=== PATIENT | male | born 1970 | race Caucasian/White ===

== ENCOUNTER 2017-06-15 07:09 | Emergency (ER) | payer OTHER, SELFPAY ==
[2017-06-15 07:10] VITALS: BMI 36.5
[2017-06-15 07:39] VITALS: TEMP 97.9
[2017-06-15] MEDS ORDERED: Sodium Chloride 0.9% 500 ML IV STA (08:08)
--- NOTE | 2017-06-15 08:20 | ED PDOC ---
Arrival/HPI - General Chief Complaint: Palpitations Time Seen by Provider: 06/15/17 07:16 Historian: Patient - History of Present Illness Narrative History of Present Illness (Text): 06/15/17 08:17 Patient is a 47 yo male, denies past medical history, presents to the Emergency Department after developing palpitations, sweats, nausea and chest discomfort this AM prior to arrival. Patient states he is an [employer], HAD no pain symptoms during his shift from yesterday 3pm that lasted until 4am this morning. When he got home early this morning he states he took a dose of Augmentin "because I've been having some pain in my tooth" and Ibuprofen "because I always have low back pain after my shift". He states he had Augmentin left over from one year ago when he was living in [place]. States that after taking medication he felt sweaty, palpitations, nauseous with burning sensation to chest and odd taste in his tongue. Denies abdominal pain or diarrhea. Denies any numbness or weakness. Symptoms now improved prior to arrival. Past Medical History - Tetanus Immunization Tetanus Immunization: Unknown - Past Medical History Past Medical History: No Previous - Psychiatric Hx Substance Use: No - Past Surgical History Past Surgical History: No Previous - Anesthesia Hx Anesthesia: No - Suicidal Assessment Feels Threatened In Home Enviroment: No Family/Social History Family/Social History: denies: CAD/MS Smoking Status: Heavy Smoker > 10 Cigarettes Daily Hx Alcohol Use: Yes Frequency of alcohol use: Socially Hx Substance Use: No Allergies/Home Meds Allergies/Adverse Reactions: Allergies No Known Allergies Allergy (Verified 06/15/17 07:23) Review of Systems - Review of Systems Constitutional: absent: Fevers Respiratory: absent: SOB, Cough Cardiovascular: Chest Pain, Palpitations. absent: Calf Pain, FONSECA, Orthopnea Gastrointestinal: Nausea. absent: Abdominal Pain, Diarrhea, Vomiting Genitourinary Male: absent: Dysuria, Frequency Musculoskeletal: absent: Back Pain Skin: absent: Rash Neurological: absent: Headache, Dizziness, Focal Weakness Endocrine: absent: Polyuria Hemo/Lymphatic: absent: Easy Bleeding Psychiatric: absent: Depression Physical Exam Vital Signs Reviewed: Yes Vital Signs Temp Pulse Resp BP Pulse Ox 06/15/17 09:11 88 18 138/80 99 06/15/17 07:38 97.9 F 84 17 153/76 H 100 06/15/17 07:21 97.5 F L 88 18 153/76 H 97 Temperature: Afebrile Appearance: Positive for: Well-Appearing, Non-Toxic, Comfortable - Systems Exam Head: Present: Atraumatic Pupils: Present: PERRL Extroacular Muscles: Present: EOMI Conjunctiva: Present: Normal Mouth: Present: Moist Mucous Membranes. No: Normal Teeth (mild pain to left upper tooth with percussion no surrounding erythema or edema) Pharnyx: No: ERYTHEMA, EXUDATE, Muffled/Hoarse Voice, Strider Nose (Internal): Present: Normal Inspection Neck: Present: Normal Range of Motion. No: Meningeal Signs Respiratory/Chest: Present: Clear to Auscultation. No: Respiratory Distress Cardiovascular: Present: Regular Rate and Rhythm Abdomen: No: Tenderness Back: No: CVA Tenderness Upper Extremity: Present: NORMAL PULSES. No: Edema Lower Extremity: Present: NORMAL PULSES Neurological: Present: Motor Func Grossly Intact, Normal Sensory Function Skin: Present: Warm. No: Diaphoretic Psychiatric: Present: Alert, Normal Insight, Normal Concentration Medical Decision Making ED Course and Treatment: Patient states that symptoms occurred half hour after taking Augmentin, Ibuprofen 800 mg and fish oil. He reports feeling burning sensation to chest with nausea and "tongue felt dry" associated with diaphoresis and palpitations. Symptoms have resolved prior to arrival. There is no history of past cardiac disease, no family hx of CAD or MS. Patient with no prior episodes of chest pain or fatigue. Symptoms are not exertional. 06/15/17 08:59 chest xray- Creator : Vishal Cooper MD IMPRESSION: No active disease. EKG unremarkable. Labs reviewed with patient. He does have pain in upper tooth with no pus or erythema or edema. Suspect possible medication side effect as symptoms occurred after taking medication. No angioedema or wheezing or urticaria. Have advised f/u with dentist, advised discontinuing augmentin, have stressed immediate return to ED for any return of any symptoms. He has been observed in ED for several hours and remains asymptomatic with unremarkable EKG and initial negative troponin. History suggestive of possible GERD/reflux type symptoms. No calf pain or swelling. No hypoxia. NO back pain or pleuritic pain. 06/15/17 14:23 - Lab Interpretations Lab Results: 06/15/17 08:00 06/15/17 08:00 Lab Results 06/15/17 08:25: Urine Color Yellow, Urine Appearance Clear, Urine pH 6.0, Ur Specific [place] 1.025, Urine Protein 30 H, Urine Glucose (UA) Negative, Urine Ketones Negative, Urine Blood Trace-intact H, Urine Nitrate Negative, Urine Bilirubin Negative, Urine Urobilinogen 0.2, Ur Leukocyte Esterase Negative, Urine RBC 0 - 2, Urine WBC 0 - 2, Ur Epithelial Cells 0 - 2, Urine Bacteria Small, Coarse Granular Casts Trace H 06/15/17 08:00: Influenza Typ A,B (EIA) Negative for flu a/b 06/15/17 08:00: Sodium 140, Potassium 3.7, Chloride 104, Carbon Dioxide 26, Anion Gap 14, BUN 15, Creatinine 0.8, Est GFR ( Amer) > 60, Est GFR (Non- Af Amer) > 60, Random Glucose 160 H, Calcium 9.6, Total Bilirubin 0.5, AST 17, ALT 32, Alkaline Phosphatase 56, Lactate Dehydrogenase 392, Total Creatine Kinase 75, Troponin I < 0.01, Total Protein 7.1, Albumin 3.9, Globulin 3.2, Albumin/Globulin Ratio 1.2 06/15/17 08:00: WBC 11.9 H, RBC 4.56, Hgb 14.6, Hct 42.3, MCV 92.8, MCH 32.0, MCHC 34.5, RDW 13.5, Plt Count 222, MPV 10.8, Gran % 68.4 H, Lymph % (Auto) 22.9 , [place] % (Auto) 7.4 H, Eos % (Auto) 1.2 L, Baso % (Auto) 0.1, Gran # 8.14 H, Lymph # (Auto) 2.7, [place] # (Auto) 0.9 H, Eos # (Auto) 0.1, Baso # (Auto) 0.01 - RAD Interpretation Radiology Orders: 06/15/17 07:53 CHEST PORTABLE [RAD] Stat Patternmaker Sample: Radiologist - EKG Interpretation EKG Interpretation (Text): EKG at 0734 normal sinus rhythm rate of [address] elevations Interpreted by ED Physician: Yes Type: 12 lead EKG - Medication Orders Current Medication Orders: Discontinued Medications Sodium Chloride (Sodium Chloride 0.9%) 500 mls @ 1,000 mls/hr IV .Q30M STA Stop: 06/15/17 08:37 Last Admin: 06/15/17 08:21 Dose: 1,000 mls/hr eMAR Start Stop Document 06/15/17 08:21 ELIER (Rec: 06/15/17 08:21 ELIER [id number]) Intravenous Solution Start Date 06/15/17 Start Time 08:21 End Date 06/15/17 End time 08:51 Total Infusion Time 30 Disposition/Present on Arrival - Present on Arrival Any Indicators Present on Arrival: No History of DVT/PE: No History of Uncontrolled Diabetes: No Urinary Catheter: No History of Decub. Ulcer: No History Surgical Site Infection Following: None - Disposition Have Diagnosis and Disposition been Completed?: Yes Diagnosis: GERD (gastroesophageal reflux disease), Palpitations, Pain, dental Disposition: HOME/ ROUTINE Disposition Time: 09:20 Patient Plan: Discharge Condition: GOOD Discharge Instructions (ExitCare): Acid Reflux (Gastroesophageal Reflux Disease ) in Adults, Palpitations (DC) Additional Instructions: Follow-up with a dentist. Do not take Augmentin due to possible adverse effect. For any return of ANY chest pain, any palpitations, any shortness of breath, any leg pain or swelling, any abdominal pain, any nausea or vomiting, any dark or bloody stools, get rechecked. Follow-up with clinic/physician for re-evaluation of blood sugar and blood pressure. Prescriptions: Esomeprazole Magnesium [Nexium] 20 mg PO DAILY #7 ecc Penicillin VK [Penicillin VK Tab] 250 mg PO Q6H #30 tab Referrals: [facility] [Outside] - Follow up with primary [facility] [place]] - Follow up with primary Forms: [email or web address] (B[place])
[2017-06-15 08:22] LABS: BASO # 0.01 K/mm3 (0.0-2.0); BASO % 0.1 % (0.0-3.0); EOS # 0.1 (0.0-0.7); EOS % 1.2 % (1.5-5.0); GRAN # 8.14 (1.4-6.5); GRAN % 68.4 % (50.0-68.0); HEMOGLOBIN 14.6 g/dL (14.0-18.0); LYMPH # 2.7 (1.2-3.4); LYMPH % 22.9 % (22.0-35.0); MEAN CELL VOLUME 92.8 fl (80.0-105.0); MEAN CORPUSCULAR HGB CONC 34.5 g/dl (31.0-37.0); MEAN PLATELET VOLUME 10.8 fl (7.0-11.0); MONO # 0.9 (0.1-0.6); MONO % 7.4 % (1.0-6.0); RBC 4.56 10^6/uL (3.5-6.1); RED CELL DISTRIBUTION WIDTH 13.5 % (11.5-14.5); WHITE BLOOD COUNT 11.9 10^3/ul (4.5-11.0)
[2017-06-15 08:36] LABS: ALB/GLOB RATIO 1.2 (1.1-1.8); ALBUMIN 3.9 g/dL (3.0-4.8); ALT/SGPT 32 U/L (7-56); AST/SGOT 17 U/L (17-59); BLOOD UREA NITROGEN 15 mg/dL (7-21); CALCIUM 9.6 mg/dL (8.4-10.5); GFR AFRICAN-AMERICAN > 60; GFR NON-AFRICAN AMERICAN > 60
[2017-06-15 08:41] LABS: URINE BILIRUBIN NEGATIVE (NEGATIVE); URINE BLOOD TRACE-INTACT (NEGATIVE); URINE GLUCOSE (UA) NEGATIVE (NEGATIVE); URINE LEUKOCYTE ESTERASE NEGATIVE Leu/uL (NEGATIVE); URINE NITRATE NEGATIVE (NEGATIVE); URINE PROTEIN 30 mg/dL (<30 mg/dL); URINE UROBILINOGEN 0.2 E.U./dL (<1 E.U./dL)
[2017-06-15 08:42] LABS: URINE APPEARANCE CLEAR (CLEAR); URINE COLOR YELLOW (YELLOW)
[2017-06-15 08:47] LABS: TROPONIN I < 0.01 ng/mL
[2017-06-15 08:52] LABS: URINE BACTERIA SMALL (NEG); URINE COARSE GRANULAR CAST TRACE /hpf (0-2); URINE EPITHELIAL CELLS 0 - 2 /hpf (0-5); URINE RBC 0 - 2 /hpf (0-2); URINE WBC 0 - 2 /hpf (0-6)
--- NOTE | 2017-06-15 08:56 | RAD ---
HISTORY: chest pain COMPARISON: No prior. FINDINGS: LUNGS: No active pulmonary disease. PLEURA: No significant pleural effusion identified, no pneumothorax apparent. CARDIOVASCULAR: Normal. OSSEOUS STRUCTURES: No significant abnormalities. VISUALIZED UPPER ABDOMEN: Normal. OTHER FINDINGS: None. IMPRESSION: No active disease.
[2017-06-15 09:42] VITALS: BP 138/80; PULSE 88; RESP 18; O2SAT 99
--- NOTE | 2017-06-16 08:18 | CARD ---
APPROVED REPORT EKG Measurement Heart [id number] <Conclusion> Normal sinus rhythm Normal ECG
== END 2017-06-15 10:17 | disposition home or self-care (01) ==
LOC: ED 07:09
DX: K21.9 Gastro-esophageal reflux disease without esophagitis (principal); R00.2 Palpitations; K08.89 Other specified disorders of teeth and supporting structures; F17.210 Nicotine dependence, cigarettes, uncomplicated
CPT/HCPCS: 71045; 80053; 81001; 82550; 83615; 84484; 85025; 87804; 93005; 99284; J7040